=== PATIENT | male | born 1965 | race Two or more races ===

== ENCOUNTER 2023-06-11 07:59 | Outpatient (AMB) | payer OTHER, SELFPAY ==
--- NOTE | 2023-06-11 08:03 | MHC.OFFVIS ---
Intake Vital Signs 06/11/23 08:07 Height 5 ft 7 in Weight 166 lb BMI 26.0 BP 102/62 Blood Pressure Location Lt brachial Position Sitting Pulse 62 Pulse Source Pulse Oximeter Pulse Oximetry (%) 96 Oxygen Delivery Method Room Air Intake Visit Reasons: 03/04/23 LETTER SENT -CHILDR[employer] Dementia/memory loss-Conf Intake Note: NPV for memory loss Maintenance Dispatcher Required: No Allergies gabapentin Allergy (Unknown, Verified 06/11/23 08:04) Unknown gemfibrozil Allergy (Unknown, Verified 06/11/23 08:04) Unknown HPI HPI Comments History of Present Illness Details 57y/o male comes for evaluation of memory issues.He reports he always had difficulty recalling conversations but few months ago while playing ping pong with his son he had difficulty remembering his score. He is wondering if he is not paying attention or if there is a memory disorder. He graduated High School In [facility] and did well. When driving sometimes he does not remember how he arrived at a destination. He drives well and no MVAs. He takes supplements and sometimes does not recall if he has taken it already.He misplaces things in the house, has trouble with recalling names. He denies any executive dysfunction His mood is stable He sleep Ok but has snoring , gasping arousals , excessive daytime sleepiness. When he was a teenager [age] he had head injury while diving in the pool. No hospitalization. In 2007 he had hit his head in the door . No loss of consciousness. His mother had memeory issues in her 50s but doing ok now- she is 86. [facility] Medical History (Updated 06/11/23 @ 08:36 by Wilda Wood MD) Allergic rhinitis Anxiety Depression Fibromyalgia Head injury Hyperlipidemia Hypersomnia Memory loss Palpitations Snoring Vitamin D deficiency Surgical History H/O arthroscopy of knee H/O hernia repair Hx of appendectomy Family History Mother Arthritis Sister Arthritis Brother Arthritis Social History Alcohol intake: never Patient Tobacco Use Status: Never used Tobacco Use of substances other than those prescribed or required for medical reasons: No Review of Systems Musc Reports arthralgias Neuro Reports memory loss Psych Reports anxiety, Reports depression and Reports memory loss Physical Exam Vital Signs: Last Vital Signs Pulse 62 06/11/23 08:07 BP 102/62 06/11/23 08:07 Pulse Ox 96 06/11/23 08:07 Oxygen Delivery Method Room Air 06/11/23 08:07 BMI result Body Mass Index 26.0 Const General: cooperative, healthy appearing, comfortable and no acute distress Nutritional Appearance: average body habitus Orientation/consciousness: patient oriented x3 Eyes Pupils: Equal, round and reactive pupils present Neck Neck: Yes no meningeal signs Neuro General: patient oriented x3, gait normal, tone normal, moves all extremities, no meningeal signs and no focal motor deficits Cranial nerves: Yes Facial sensation intact/muscles of mastication intact, Yes Equal, round and reactive pupils present, Yes Bilaterally intact EOM present, Yes Nystagmus not present, Yes Normal facial strength present, Yes Midline tongue present and Yes Symmetric palate elevation present Cognition (Neuro): normal cognition Gait exam (Neuro): Normal gait present Motor exam (neuro): 5/5 motor strength present throughout and Normal motor muscle tone present throughout Deep tendon reflexes (DTR's): Right triceps reflex intensity grade: 2+, Left triceps reflex intensity grade: 2+, Rt Biceps (C5, C6): 2+, Left biceps reflex intensity grade: 2+, Right brachioradialis reflex intensity grade: 2+, Left brachioradialis reflex intensity grade: 2+, Right patellar reflex intensity grade: 2+ and Left patellar reflex intensity grade: 2+ Coordination: [id number] test normal Orientation What is the (year) (season) (date) (day) (month)?: year, season, date, day and month Where are we (state) (county) (town or city) (hospital) (floor)?: state, county, town or city, hospital/clinic and floor Registration Name of 3 unrelated objects clearly and slowly, then ask patient to repeat all 3 of them. (1st repeat determines score. Make sure they can repeat all three): object 1, object 2 and object 3 Attention & Calculation (CHOOSE ONE) Spell WORLD backwards (DLROW): 5 letters Recall Ask patient to repeat the 3 items from question #3.: object 1 Language Show patient a wristwatch & ask what it is. Repeat for pencil.: watch and pencil Ask the patient to repeat the phrase 'No ifs, ands, or buts' after you.: correct Ask the patient to 'take a piece of paper with their right hand' 'fold paper in half' 'place paper on floor': take paper in right hand and fold paper in half Print the sentence 'CLOSE YOUR EYES' on a piece. If patient actually closes eyes then score.: followed written direction Give patient a blank piece of paper & ask to write a sentence. Score if it contains a noun & verb.: sentence contains subject and verb Ask patient to copy figure of intersecting pentagons exactly. Score if all 10 angles & 2 intersects are included.: all 10 angles present & 2 are intersected Score Score: 27 Assessment & Plan Assessment & Plan (1) Memory loss: Comment: related to mood ? sleep Code(s): R41.3 - Other amnesia (2) Snoring: Code(s): R06.83 - Snoring (3) Hypersomnia: Code(s): G47.10 - Hypersomnia, unspecified (4) Anxiety: Code(s): F41.9 - Anxiety disorder, unspecified Plan Lab reports from PCP for review MRI brain SLeep study to r/o sleep apnea Suggested therapy for anxiety . He reports that his has multiple medical and psychiatric issues and he has trouble dealing with her sometimes. Orders: Orders RT home sleep study Today G47.10 - Hypersomnia, unspecified, R06.83 - Snoring MR head/brain wo con Today R41.3 - Other amnesia Coding Level of Care Code New Pt Level 4 (85023) Diagnoses Memory loss R41.3 Snoring R06.83 Hypersomnia G47.10 Anxiety F41.9
[2023-06-11 08:07] VITALS: BP 102/62; PULSE 62; O2SAT 96; BMI 26.0
== END 2023-06-11 08:41 | disposition home or self-care (01) ==
PROVIDERS: Visit Provider Psychiatry & Neurology Neurology
DX: R41.3 Other amnesia (principal); R06.83 Snoring; G47.10 Hypersomnia, unspecified; F41.9 Anxiety disorder, unspecified
CPT/HCPCS: 99204

== ENCOUNTER → 2023-06-11 07:59 | Outpatient (BNVA) | payer OTHER, SELFPAY | PROVIDERS: Visit Provider Psychiatry & Neurology Neurology ==

== ENCOUNTER → 2023-08-20 08:33 | Outpatient (REF) | payer OTHER, SELFPAY | LOC: HO.SL 08:33 | PROVIDERS: Visit Provider Psychiatry & Neurology Neurology | DX: Z13.89 Encounter for screening for other disorder (principal) ==

== ENCOUNTER → 2023-10-11 20:30 | Outpatient (BNV) | payer OTHER, SELFPAY | PROVIDERS: PCP Internal Medicine; Visit Provider Psychiatry & Neurology Neurology | DX: G47.10 Hypersomnia, unspecified (principal) | CPT/HCPCS: 95810 ==

== ENCOUNTER → 2023-10-11 20:30 | Outpatient (REF) | payer OTHER, SELFPAY | LOC: HO.SL 20:30 | PROVIDERS: PCP Internal Medicine; Visit Provider Nurse Practitioner Family | DX: G47.10 Hypersomnia, unspecified (principal); R41.3 Other amnesia; R06.83 Snoring | CPT/HCPCS: 95810 ==

== ENCOUNTER 2023-10-14 09:25 | Outpatient (AMB) | payer OTHER, SELFPAY ==
--- NOTE | 2023-10-14 09:30 | A.OFFVIS_ITS ---
Intake Vital Signs 10/14/23 09:34 Height 5 ft 7 in Weight 171 lb BMI 26.8 BP 110/68 Blood Pressure Location Lt brachial Position Sitting Pulse 77 Pulse Source Pulse Oximeter Pulse Oximetry (%) 96 Oxygen Delivery Method Room Air Intake Visit Reasons: 4m follow up Dementia/memory loss-Confirmed Director Employee Safety And Health Required: No Allergies gabapentin Allergy (Unknown, Verified 10/14/23 09:31) Unknown gemfibrozil Allergy (Unknown, Verified 10/14/23 09:31) Unknown HPI HPI Comments History of Present Illness Details 57 y/o male comes for follow up of memor y issues Pt had a in lab sleep study last Thursday. The PSG result was no evidence of sleep apnea. The AHI was 3/hr and average O2 sat was 93%. He works 8 hrs a day at [employer]. He sleeps ok, but being tired. Brain MRI ordered, but not done yet. He reports he always had difficulty recalling conversations. He is wondering if he is not paying attention or if there is a memory disorder. He reports that his has multiple medical and psychiatric issues and he has trouble dealing with her sometimes. When he was a teenager 12-13 he had head injury while diving in the pool. No hospitalization. In 2007 he had hit his head in the door . No loss of consciousness. His mother had memory issues in her 50s but doing ok now- she is 86. [facility] Medical History (Updated 06/11/23 @ 08:36 by Wilda Wood MD) Memory loss Hypersomnia Snoring Allergic rhinitis Depression Palpitations Vitamin D deficiency Hyperlipidemia Head injury Fibromyalgia Anxiety Surgical History H/O arthroscopy of knee Hx of appendectomy H/O hernia repair Family History Mother Arthritis Sister Arthritis Brother Arthritis Social History (Updated 10/14/23 @ 09:34 by Camryn Pierce CMA) Alcohol intake: never Patient Tobacco Use Status: Never used Tobacco Review of Systems Const All systems reviewed & are unremarkable except as noted in HPI and below Physical Exam Vital Signs: Last Vital Signs Pulse 77 10/14/23 09:34 BP 110/68 10/14/23 09:34 Pulse Ox 96 11/29/23 09:34 Oxygen Delivery Method Room Air 10/14/23 09:34 Const General: cooperative, healthy appearing, comfortable and no acute distress Nutritional Appearance: average body habitus Orientation/consciousness: patient oriented x3 Eyes Pupils: Equal, round and reactive pupils present Neck Neck: Yes no meningeal signs Neuro General: patient oriented x3, gait normal, tone normal, moves all extremities, no meningeal signs and no focal motor deficits Cranial nerves: Yes Facial sensation intact/muscles of mastication intact, Yes Equal, round and reactive pupils present, Yes Bilaterally intact EOM present, Yes Nystagmus not present, Yes Normal facial strength present, Yes Midline tongue present and Yes Symmetric palate elevation present Cognition (Neuro): normal cognition Gait exam (Neuro): Normal gait present Motor exam (neuro): 5/5 motor strength present throughout and Normal motor muscle tone present throughout Deep tendon reflexes (DTR's): Right triceps reflex intensity grade: 2+, Left triceps reflex intensity grade: 2+, Rt Biceps (C5, C6): 2+, Left biceps reflex intensity grade: 2+, Right brachioradialis reflex intensity grade: 2+, Left brachioradialis reflex intensity grade: 2+, Right patellar reflex intensity grade: 2+ and Left patellar reflex intensity grade: 2+ Coordination: [id number] test normal Assessment & Plan Assessment & Plan (1) Memory loss: Comment: related to mood ? sleep Code(s): R41.3 - Other amnesia (2) Snoring: Code(s): R06.83 - Snoring (3) Hypersomnia: Code(s): G47.10 - Hypersomnia, unspecified (4) Anxiety: Code(s): F41.9 - Anxiety disorder, unspecified Plan Advised patient to undergo MRI brain. Suggested therapy for anxiety. Advised patient to increase daily physical activities, well balanced diet. Coding Level of Care Code Est Pt Level 3 (71520) Diagnoses Memory loss R41.3 Snoring R06.83 Hypersomnia G47.10 Anxiety F41.9
[2023-10-14 09:34] VITALS: BP 110/68; PULSE 77; O2SAT 96; BMI 26.8
== END 2023-10-14 09:55 | disposition home or self-care (01) ==
PROVIDERS: PCP Internal Medicine; Visit Provider Nurse Practitioner Family
DX: R41.3 Other amnesia (principal); R06.83 Snoring; G47.10 Hypersomnia, unspecified; F41.9 Anxiety disorder, unspecified
CPT/HCPCS: 99213

== ENCOUNTER → 2023-10-14 09:25 | Outpatient (BNVA) | payer OTHER, SELFPAY | PROVIDERS: PCP Internal Medicine; Visit Provider Nurse Practitioner Family | DX: R06.83 Snoring (principal); G47.10 Hypersomnia, unspecified; R41.3 Other amnesia; F41.9 Anxiety disorder, unspecified ==